=== PATIENT | female | born 1965 | race Caucasian/White ===

== ENCOUNTER 2016-12-23 22:01 | Inpatient (IN) | payer BC ==
[~2016-12-23] VITALS: Ht 165.1 cm; Wt 59.0 kg
[2016-12-23 22:42] LABS: CALCIUM 8.8 mg/dL (8.5-10.1); CARBON DIOXIDE 29.9 mmol/L (21-32); CHLORIDE SERUM 96 mmol/L (98-107); GFR1 > 60 mL/min; GLUCOSE SERUM 101 mg/dL (74-106)
[2016-12-23 22:46] LABS: BASOPHIL % 0.8 % (0-2); PLATELET COUNT 232 x10^3mcL (130-400)
[2016-12-23 22:47] LABS: ALKALINE PHOSPHATASE 77 U/L (46-116); ALT/SGPT 10 U/L (14-59); AST/SGOT 18 U/L (15-37); BILIRUBIN TOTAL 0.39 mg/dL (0.20-1.00); POTASSIUM SERUM 3.3 mmol/L (3.5-5.1); SODIUM SERUM 138 mmol/L (136-145)
[2016-12-23 22:48] LABS: ALBUMIN 3.2 g/dL (3.4-5.0); RED CELL DISTRIBUTION WIDTH 15.3 % (11.5-14.5); TOTAL PROTEIN, SERUM 5.5 g/dL (6.4-8.2)
[2016-12-24] MEDS ORDERED: ATORVASTATIN CA40 M1 PO (00:39)
[2016-12-24] MEDS ORDERED: COR6 PO (00:39)
[2016-12-24] MEDS ORDERED: BUPROPION HYDR300 MG PO (00:39)
[2016-12-24] MEDS ORDERED: EFFIENT10 M2 PO (00:40)
[2016-12-24] MEDS ORDERED: PROTONIX40 MG PO (00:41)
[2016-12-24] MEDS ORDERED: COZ50 PO (00:41)
[2016-12-24] MEDS ORDERED: LEXAPRO10 MG PO (00:41)
[2016-12-24] MEDS ORDERED: PRINIVIL20 MG PO (00:41)
[2016-12-24] MEDS ORDERED: SENNA8.6 MG PO (00:47)
[2016-12-24] MEDS ORDERED: ULTRAM50 MG PO (00:52)
[2016-12-24] MEDS ORDERED: AMBIEN10 MG PO (00:52)
[2016-12-24] MEDS ORDERED: XANAX0.5 MG PO (00:52)
[2016-12-24 01:35] LABS: CHOLESTEROL/HDL RATIO 2.5
[2016-12-24 01:44] LABS: FREE T4 1.03 ng/dL (0.76-1.46); FREE THYROXINE INDEX 2.4 ug/dL (1.4-4.5)
[2016-12-24 02:20] VITALS: BP 136/84
[2016-12-24 05:00] VITALS: BP 134/72
[2016-12-24 09:16] VITALS: BP 126/72
[2016-12-24 10:32] LABS: T3 TOTAL 1.2 ng/mL
[2016-12-24 16:49] VITALS: BP 116/72
[2016-12-24 22:04] VITALS: BP 94/61
[2016-12-25 05:48] VITALS: BP 134/79
[2016-12-25 06:23] LABS: BASOPHIL % 0.6 % (0-2); PLATELET COUNT 201 x10^3mcL (130-400)
[2016-12-25 06:26] LABS: RED CELL DISTRIBUTION WIDTH 15.5 % (11.5-14.5)
[2016-12-25 06:27] LABS: CALCIUM 8.5 mg/dL (8.5-10.1); CARBON DIOXIDE 28.7 mmol/L (21-32); CHLORIDE SERUM 109 mmol/L (98-107); CREATININE SERUM 0.8 mg/dL (0.6-1.0); GFR1 > 60 mL/min; GLUCOSE SERUM 92 mg/dL (74-106); MAGNESIUM 1.8 mg/dL (1.8-2.4); PHOSPHOROUS 4.3 mg/dL (2.5-4.9); POTASSIUM SERUM 4.8 mmol/L (3.5-5.1); SODIUM SERUM 143 mmol/L (136-145)
[2016-12-25 08:02] LABS: microscopic required? NO
[2016-12-25 08:38] LABS: AMPHETAMINE QUAL UR NONE DETECTED (NEG <=1000)
[2016-12-25 08:41] VITALS: BP 131/76
[2016-12-25 08:56] LABS: UA SPECIFIC GRAVITY 1.025 (1.005-1.035)
[2016-12-25 08:57] LABS: urine erythrocyte NEGATIVE (NEGATIVE)
[2016-12-25 12:29] VITALS: Ht 165.1 cm; Wt 59.0 kg
[2016-12-25 13:00] VITALS: BP 111/71
[2016-12-25 18:41] VITALS: BP 135/79
[2016-12-25 22:04] VITALS: BP 127/75
[2016-12-26 05:53] VITALS: BP 156/75
[2016-12-26 06:16] LABS: CALCIUM 8.4 mg/dL (8.5-10.1); CARBON DIOXIDE 27.8 mmol/L (21-32); CHLORIDE SERUM 108 mmol/L (98-107); CREATININE SERUM 0.8 mg/dL (0.6-1.0); GFR1 > 60 mL/min; GLUCOSE SERUM 97 mg/dL (74-106); POTASSIUM SERUM 4.2 mmol/L (3.5-5.1); SODIUM SERUM 142 mmol/L (136-145)
[2016-12-26 06:34] LABS: BASOPHIL % 0.4 % (0-2); PLATELET COUNT 220 x10^3mcL (130-400)
[2016-12-26 06:35] LABS: RED CELL DISTRIBUTION WIDTH 15.1 % (11.5-14.5)
[2016-12-26 09:03] VITALS: BP 178/54
[2016-12-26] MEDS ORDERED: PANTOPRAZOLE SO40 M1 PO (12:41)
[2016-12-26 12:57] VITALS: BP 131/80
[2016-12-26 13:16] VITALS: BP 131/80
== END 2016-12-26 15:26 | DRG 384 ==
LOC: ED 22:01 → MU 12-24 00:56 → DU 12-24 00:56 → MU 12-25 18:07
PROVIDERS: Emergency Medicine; ADMIT Family Medicine
DX: K25.9 Gastric ulcer, unspecified as acute or chronic, without hemorrhage or perforation (principal); E44.0 Moderate protein-calorie malnutrition; F32.2 Major depressive disorder, single episode, severe without psychotic features; K21.9 Gastro-esophageal reflux disease without esophagitis; K20.9 Esophagitis, unspecified; K29.80 Duodenitis without bleeding; E87.6 Hypokalemia; F41.0 Panic disorder [episodic paroxysmal anxiety]; I25.10 Atherosclerotic heart disease of native coronary artery without angina pectoris; D64.9 Anemia, unspecified; I10 Essential (primary) hypertension; Z68.21 Body mass index [BMI] 21.0-21.9, adult; Z87.891 Personal history of nicotine dependence; Z95.5 Presence of coronary angioplasty implant and graft; Z86.73 Personal history of transient ischemic attack (TIA), and cerebral infarction without residual deficits
CPT/HCPCS: 43235; 80307; 83880; 84439; C9113; J1200; J1610; J1885; J2250; J2270; J2310; J2405; J3010; J3490; J7030; Q0092

== ENCOUNTER 2016-12-29 07:16 | Emergency (ER) | payer BC ==
[~2016-12-29] VITALS: Ht 165.1 cm; Wt 57.1 kg
[~2016-12-29 07:16] MED LIST: AMBIEN10 MG PO; ATORVASTATIN CA40 M1 PO; BUPROPION HYDR300 MG PO; COR6 PO; COZ50 PO; EFFIENT10 M2 PO; LEXAPRO10 MG PO; PANTOPRAZOLE SO40 M1 PO; PRINIVIL20 MG PO; PROTONIX40 MG PO; SENNA8.6 MG PO; ULTRAM50 MG PO; XANAX0.5 MG PO
[2016-12-29 07:54] LABS: BASOPHIL % 0.9 % (0-2); PLATELET COUNT 284 x10^3mcL (130-400)
[2016-12-29 07:58] LABS: RED CELL DISTRIBUTION WIDTH 15.2 % (11.5-14.5)
[2016-12-29 08:04] LABS: CALCIUM 9.8 mg/dL (8.5-10.1); CARBON DIOXIDE 27.9 mmol/L (21-32); CHLORIDE SERUM 104 mmol/L (98-107); GFR1 > 60 mL/min; GLUCOSE SERUM 107 mg/dL (74-106); POTASSIUM SERUM 4.3 mmol/L (3.5-5.1); SODIUM SERUM 141 mmol/L (136-145)
[2016-12-29 08:15] LABS: ALKALINE PHOSPHATASE 90 U/L (46-116); ALT/SGPT 20 U/L (14-59); AST/SGOT 22 U/L (15-37); BILIRUBIN TOTAL 0.4 mg/dL (0.20-1.00); TOTAL PROTEIN, SERUM 7.2 g/dL (6.4-8.2)
[2016-12-29 08:31] LABS: AMPHETAMINE QUAL UR NONE DETECTED (NEG <=1000)
[2016-12-29 12:10] VITALS: BP 124/78
== END 2016-12-29 12:10 | disposition home or self-care (01) ==
LOC: ED 07:16
PROVIDERS: Emergency Medicine
DX: R07.89 Other chest pain (principal); K21.9 Gastro-esophageal reflux disease without esophagitis; M79.641 Pain in right hand; I10 Essential (primary) hypertension
CPT/HCPCS: 80307; 83880; C9113; Q0092